=== PATIENT | female | born 2005 | race Two or more races ===

== ENCOUNTER → 2024-01-08 | Emergency (ER) | payer SELFPAY ==
[~2024-01-08] VITALS: Ht 154.9 cm; Wt 70.0 kg
[~2024-01-08] MED LIST: ONDA-104 PO
[2024-01-08 13:49] VITALS: TEMP 98
[2024-01-08 14:11] LABS: COVID AG,FIA SOURCE NASAL SWAB
[2024-01-08 14:55] LABS: INFLUENZA TYPE A NEGATIVE FOR TYPE A (NEGATIVE); INFLUENZA TYPE B NEGATIVE FOR TYPE B (NEGATIVE); SARS-COV2 (COVID) ANTIGEN,FIA Negative (Negative)
[2024-01-08 16:14] LABS: APPEARANCE,URINE CLEAR (CLEAR); BILIRUBIN,URINE NEGATIVE (NEGATIVE); COLOR,URINE YELLOW (YELLOW); GLUCOSE, URINE (UA) >=1000 mg/dL (NEGATIVE); KETONES,URINE =>150 mg/dL (NEGATIVE); LEUKOCYTE ESTERASE ,URINE NEGATIVE (NEGATIVE); NITRATE,URINE NEGATIVE (NEGATIVE); OCCULT BLOOD,URINE LARGE (NEGATIVE); PROTEIN,URINE 30-70 mg/dL (NEGATIVE); SPECIFIC GRAVITIY, URINE 1.037 (1.003-1.030); UROBILINOGEN,URINE <=1.0 mg/dL (<=1.0)
[2024-01-08] MEDS: KETOROLAC TROMETHAMINE 30 MG/ML VIAL IVP ONE (16:16)
[2024-01-08] MEDS: ONDANSETRON HCL 4 MG/2 ML VIAL IVP ONE (16:16)
[2024-01-08] MEDS: SODIUM CHLORIDE 0.9% 1,000 ML IV ONE (16:17)
[2024-01-08 16:19] LABS: HCG,QUAL URINE NEGATIVE (NEGATIVE)
[2024-01-08 16:42] LABS: BACTERIA,URINE None Seen /HPF (None Seen); SQUAMOUS EPITHELIAL CELL,UR Moderate /LPF (None Seen); WBC,URINE None Seen /HPF (0-5)
[2024-01-08 17:03] LABS: BASOPHILS % (AUTO) 0.2 % (0.0-2.0); EOSINOPHILS % (AUTO) 0.4 % (1.0-6.0); HEMATOCRIT 42.3 % (36-46); HEMOGLOBIN 13.9 g/dL (12.0-16.0); LYMPHOCYTES % (AUTO) 8.3 % (22.0-44.0); MEAN CORPUSCULAR VOLUME 85 fL (80-100); MONOCYTES # (AUTO) 0.5 K/uL (0.1-1.0); MONOCYTES % (AUTO) 4.3 % (2.0-9.0); NEUTROPHILS # (AUTO) 10.1 K/uL (1.8-7.7); NEUTROPHILS % (AUTO) 86.8 % (40.0-70.0); PLATELET COUNT (AUTO) 341 K/uL (150-450); RED BLOOD CELL COUNT(AUTO) 4.98 MIL/uL (4.00-5.20); RED CELL DISTRIBUTION WIDTH 12.5 % (11.5-14.5); WHITE BLOOD COUNT (AUTO) 11.6 K/uL (4.5-11.0)
[2024-01-08 17:08] VITALS: BP 134/76; PULSE 96; RESP 18
[2024-01-08 17:12] LABS: ANION GAP 10 mmol/L (8-16); CALCIUM, TOTAL 8.2 mg/dL (8.8-10.5); CARBON DIOXIDE 24 mmol/L (22-29); CHLORIDE 105 mmol/L (98-107); CREATININE 0.58 mg/dL (0.60-1.30); GLOMERULAR FILTR. RATE CALC > 60 mL/min (>60); GLUCOSE,RANDOM 246 mg/dL (70-110); POTASSIUM 3.4 mmol/L (3.5-5.1); SODIUM SERUM 139 mmol/L (136-145); UREA NITROGEN, BLOOD 16 mg/dL (7-18)
[2024-01-08 17:18] LABS: ALANINE AMINOTRANSFERASE 15 U/L (12-78); ALBUMIN 3.1 g/dL (3.4-5.0); ALKALINE PHOSPHATASE 87 U/L (46-116); ASPARTATE AMINOTRANSFERASE 11 U/L (15-37); BILIRUBIN,TOTAL 0.8 mg/dL (0.1-1.0); LIPASE 17 U/L (16-77)
[2024-01-08] MEDS: POTASSIUM CHLORIDE 20 MEQ ER TABLET PO ONE (17:43)
[2024-01-08] MEDS: INSULIN REGULAR, HUMAN 100 UNITS/ML IVP ONE (17:44)
[2024-01-08 20:11] LABS: GLUCOMETER DEV NAME(LOC) ER.7; GLUCOSE,POINT OF CARE 222 MG/DL (70-110)
== END | disposition still patient (30) ==
LOC: EMS 13:47
DX: A05.9 Bacterial foodborne intoxication, unspecified (principal); E87.6 Hypokalemia; E11.9 Type 2 diabetes mellitus without complications; Z20.822 Contact with and (suspected) exposure to COVID-19
CPT/HCPCS: 99284; 96374; 96375; 96361; 87426; 80048; 80076; 81001; 82962; 83690; 84703; 85025; 87804; 36415; J1815; J1885; J2405; J7030

== ENCOUNTER 2024-01-16 23:27 | Emergency (ER) | payer OTHER ==
[~2024-01-16] VITALS: Ht 154.9 cm; Wt 68.2 kg
[2024-01-16 23:57] VITALS: BP 117/63; PULSE 74; RESP 18; TEMP 97.3
== END 2024-01-17 00:56 | disposition home or self-care (01) ==
LOC: EMS 23:27
DX: Z48.00 Encounter for change or removal of nonsurgical wound dressing (principal); F12.90 Cannabis use, unspecified, uncomplicated
CPT/HCPCS: 99282; Z7502

== ENCOUNTER 2024-01-20 11:47 | Emergency (ER) | payer OTHER ==
[~2024-01-20] VITALS: Ht 154.9 cm; Wt 63.6 kg
[2024-01-20 11:49] VITALS: BP 124/62; PULSE 96; RESP 18; TEMP 98.2
[2024-01-20] MEDS: ACETAMINOPHEN 500 MG TABLET PO ONE (14:39)
[2024-01-20] MEDS: IBUPROFEN 600 MG TABLET PO ONE (14:39)
[2024-01-20] MEDS ORDERED: ACET-66 PO (15:44)
[2024-01-20] MEDS ORDERED: IBUP-1554 PO (15:44)
== END 2024-01-20 15:53 | disposition home or self-care (01) ==
LOC: EMS 11:47
DX: S93.402A Sprain of unspecified ligament of left ankle, initial encounter (principal); M25.552 Pain in left hip; F12.90 Cannabis use, unspecified, uncomplicated; Z79.899 Other long term (current) drug therapy; W18.40XA Slipping, tripping and stumbling without falling, unspecified, initial encounter; Y93.89 Activity, other specified; Y92.89 Other specified places as the place of occurrence of the external cause; Y99.8 Other external cause status
CPT/HCPCS: 73503; 82962; 99284